=== PATIENT | female | born 1965 | race Caucasian/White ===

== ENCOUNTER 2018-07-01 11:06 | Outpatient (CLI) | payer BC, SELFPAY ==
[2018-07-01 11:32] LABS: HGB 12.2 g/dL (12.0-15.5); Mean Corpuscular Hemoglobin 28.3 pg (27.0-33.0); Mean Corpuscular Volume 85.8 fL (80-95); Mean Platelet Volume 9.5 fL (8.0-11.0); Platelet Count 199 x1000/uL (130-400); RBC 4.31 m/cumm (4.00-5.20); RBC Distribution Width 13.4 % (11.7-14.6); White Blood Cell Count 6.29 k/cumm (4.4-10.8)
[2018-07-01 11:44] LABS: ALT 41 U/L (12-78); AST 24 U/L (15-37); Albumin 3.4 g/dL (3.4-5.0); Alkaline Phosphatase 98 U/L (46-116); Anion Gap 9.8 mmol/L (3-11); BUN 12 mg/dL (7-18); Bilirubin, Total 0.4 mg/dL (0.2-1.0); CO2 27.2 mmol/L (21.0-32.0); CREATININE 0.86 mg/dL (0.55-1.02); Calcium 8.8 mg/dL (8.5-10.1); Chloride 105 mmol/L (98-107); Glucose 127 mg/dL (70-100); Potassium 3.8 mmol/L (3.5-5.1); Sodium 142 mmol/L (136-145); Total Protein 7.2 g/dL (6.4-8.2)
[2018-07-01 12:58] LABS: Iron 42 ug/dL (50-175); Total Iron Binding Capacity 353 ug/dL (250-450); Transferrin Sat 12 % (15-50)
[2018-07-03 07:51] LABS: Vitamin D 25 Total 37.8 ng/ml (30-100)
== END 2018-07-01 11:26 ==
PROVIDERS: PCP Family Medicine; Visit Provider Family Medicine
DX: D50.9 Iron deficiency anemia, unspecified (principal); E55.9 Vitamin D deficiency, unspecified; R53.83 Other fatigue
CPT/HCPCS: 36415; 80053; 82306; 85027; 83540; 83550

== ENCOUNTER 2019-03-26 10:21 | Outpatient (CLI) | payer BC, SELFPAY ==
--- NOTE | 2019-03-26 09:45 | DI.RAD_ITS ---
EXAM: XR ANKLE LT COMPLETE INDICATION: pain internal malleolar area - swelling/no trauma, M25.572. COMPARISON: No exams were available for comparison TECHNIQUE: 2D digital imaging was performed. FINDINGS: There is some soft tissue swelling of the medial malleolus. No bony or joint abnormality is identifie d.
== END 2019-03-26 10:41 ==
PROVIDERS: PCP Family Medicine; Visit Provider Family Medicine
DX: M25.572 Pain in left ankle and joints of left foot (principal); M79.89 Other specified soft tissue disorders
CPT/HCPCS: 73610

== ENCOUNTER 2019-07-04 11:11 | Outpatient (REF) | payer BC, SELFPAY ==
--- NOTE | 2019-07-04 09:30 | PAPFT_PTH ---
PATIENT: Demi Randle LOC: [facility] U#:[id number] AGE/SX: 54/F ROOM: RE07/04/[address]: Subha Gifford MD : 1965 BED: DIS: 07/04/2019 SPEC #: [id number] RECD: 07/04/19 12:48 STATUS: CAROLE ZAVALA #: [id number] KRISHNA: 07/04/19 09:[address]: Subha Gifford DEPT: [facility] Cytology RECD BY: Bre Capps Tissues: 1 - CX/ENDOCX FOR PAP SMEARS Procedures: PAP THIN PREP/UVM Screening HPV DNA PROBE Comments: [id number]
== END 2019-07-04 11:31 ==
LOC: LBN 11:11
PROVIDERS: PCP Family Medicine; Visit Provider Family Medicine
DX: Z12.4 Encounter for screening for malignant neoplasm of cervix (principal)
CPT/HCPCS: 88142; 87624

== ENCOUNTER 2019-07-14 09:37 | Outpatient (CLI) | payer BC, SELFPAY ==
[2019-07-14 11:15] LABS: HCT 39.8 % (36.0-46.0); Mean Corp. HGB Concentration 32.7 g/dL (32.0-36.0); Mean Corpuscular Volume 82.6 fL (80-95); Mean Platelet Volume 9.8 fL (8.0-11.0); Platelet Count 215 x1000/uL (130-400); RBC 4.82 m/cumm (4.00-5.20); White Blood Cell Count 6.24 k/cumm (4.4-10.8)
[2019-07-14 11:37] LABS: Iron 60 ug/dL (50-170); Total Iron Binding Capacity 339 ug/dL (250-450); Transferrin Sat 18 % (15-50)
[2019-07-14 11:51] LABS: ALT 43 U/L (14-59); AST 20 U/L (15-37); Albumin 3.7 g/dL (3.4-5.0); Alkaline Phosphatase 117 U/L (46-116); BUN 11 mg/dL (7-18); Bilirubin, Total 0.6 mg/dL (0.2-1.0); CREATININE 0.66 mg/dL (0.55-1.02); Calcium 8.9 mg/dL (8.5-10.1); Calculated LDL 160 mg/dL; Chloride 105 mmol/L (98-107); Cholesterol 230 mg/dL (<200); Ferritin 92 ng/mL (8-252); Glucose 95 mg/dL (74-106); HDL Cholesterol 39 mg/dL (40-60); Potassium 4.1 mmol/L (3.5-5.1); Sodium 143 mmol/L (136-145); Total Protein 6.9 g/dL (6.4-8.2); Triglyceride 158 mg/dL (<150)
[2019-07-16 14:10] LABS: Vitamin D 25 Total 33.7 ng/ml (30-100)
== END 2019-07-14 09:57 ==
PROVIDERS: PCP Family Medicine; Visit Provider Family Medicine
DX: D50.9 Iron deficiency anemia, unspecified (principal); E55.9 Vitamin D deficiency, unspecified; R53.83 Other fatigue; Z13.220 Encounter for screening for lipoid disorders
CPT/HCPCS: 36415; 80053; 80061; 82306; 85027; 82728; 83540; 83550

== ENCOUNTER 2019-08-01 01:16 | Outpatient (CLI) | payer BC, SELFPAY ==
--- NOTE | 2019-08-01 07:27 | DI.MAMMO_ITS ---
EXAM: MAMMO SCREENING CLINICAL HISTORY: screening,Z12.39 TECHNIQUE: Mammograms were interpreted according to the usual protocol including computer analysis w [employer] CAD system, tomosynthesis and C-view imaging. COMPARISON: 2009 to 2017 FINDINGS: The breasts are composed of heterogeneously dense fibroglandular densities, Breast Density category C . No suspicious masses or suspicious microcalcifications are seen. No skin thickening or abnormal axillary lymph nodes are seen. There has been no significant change from prior exams. IMPRESSION: BIRADS Category 1, negative mammogram. Yearly screening mammography is recommended. BREAST DENSITY: The mammogram demonstrates the patient's breast tissue is dense. Dense breast tissue is very common and is not abnormal but dense breast tissue can make it harder to find cancer on a ma mmogram. Also, dense breast tissue may increase breast cancer risk. This information about the result of the mammogram report was provided to the patient to raise their awareness. Use this report when y ou speak with the patient about their risks for breast cancer, which includes their family history. A t that time, you may recommend additional screening tests (Ultrasound or MRI) as they might be useful based on their risk. A negative radiographic report should not delay biopsy if a dominant or clinically suspicious mass is present. Up to ten percent of cancers are not identified on mammography. A negative report may reinforce clinical impression. Adenosis and dense breasts may obscure an underlying neoplasm. False positive reports average 6 to 10%.
== END 2019-08-01 01:36 ==
PROVIDERS: PCP Family Medicine; Visit Provider Family Medicine
DX: Z12.31 Encounter for screening mammogram for malignant neoplasm of breast (principal)
CPT/HCPCS: 77063; 77067

== ENCOUNTER 2020-04-11 07:27 | Outpatient (CLI) | payer BC, SELFPAY ==
[2020-04-13 23:23] LABS: Patient Race White; SARS-CoV-2 Specimen Source Nasal
[2020-04-14 08:53] LABS: SARS-CoV-2 RNA Detected (Undetected)
== END 2020-04-11 07:47 ==
PROVIDERS: PCP Family Medicine; Visit Provider Emergency Medicine
DX: R50.9 Fever, unspecified (principal)
CPT/HCPCS: U0003

== ENCOUNTER 2020-07-14 09:27 | Outpatient (CLI) | payer BC, SELFPAY ==
[2020-07-14 13:24] LABS: ALT 34 U/L (14-59); AST 18 U/L (15-37); Albumin 3.8 g/dL (3.4-5.0); Alkaline Phosphatase 89 U/L (46-116); Anion Gap 4.8 mmol/L (3-11); BUN 16 mg/dL (7-18); Bilirubin, Total 0.6 mg/dL (0.2-1.0); CO2 30.2 mmol/L (21.0-32.0); CREATININE 0.71 mg/dL (0.55-1.02); Calcium 8.9 mg/dL (8.5-10.1); Calculated LDL 143 mg/dL (<100); Chloride 106 mmol/L (98-107); Cholesterol 214 mg/dL (<200); Ferritin 70 ng/mL (8-252); Glucose 103 mg/dL (74-106); HDL Cholesterol 44 mg/dL (40-60); Magnesium 1.9 mg/dL (1.8-2.4); Potassium 3.9 mmol/L (3.5-5.1); Sodium 141 mmol/L (136-145); Total Protein 6.8 g/dL (6.4-8.2); Triglyceride 137 mg/dL (<150)
[2020-07-14 13:30] LABS: Vitamin D 25 Total 30.6 ng/ml (30-100)
== END 2020-07-14 09:47 ==
PROVIDERS: PCP Family Medicine; Visit Provider Family Medicine
DX: D50.9 Iron deficiency anemia, unspecified (principal); I10 Essential (primary) hypertension; E78.00 Pure hypercholesterolemia, unspecified; E83.2 Disorders of zinc metabolism; E55.9 Vitamin D deficiency, unspecified
CPT/HCPCS: 36415; 80053; 80061; 82306; 82728; 83735

== ENCOUNTER 2021-08-11 03:48 | Outpatient (CLI) | payer BC, SELFPAY ==
[2021-08-11 08:27] LABS: HCT 39.5 % (36.0-46.0); HGB 12.5 g/dL (11.2-15.7); MCH 27.4 pg (27.0-33.0); MCHC 31.6 % (32.0-36.0); MCV 86.6 fL (80-95); MPV 9.5 fL (8.0-11.0); Platelet Count 196 10^3/uL (130-400); RBC 4.56 10^6/uL (3.93-5.22); RDW 13.3 % (11.7-14.6); RDW-SD 41.7 fL; WBC 6.21 10^3/uL (4.4-10.8)
[2021-08-11 09:08] LABS: ALT 52 U/L (14-59); AST 21 U/L (15-37); Albumin 3.6 g/dL (3.4-5.0); Alkaline Phosphatase 102 U/L (46-116); Anion Gap 11.2 mmol/L (3-11); BUN 17 mg/dL (7-18); Bilirubin, Total 0.5 mg/dL (0.2-1.0); CO2 26.8 mmol/L (21.0-32.0); CREATININE 0.7 mg/dL (0.55-1.02); Calcium 8.6 mg/dL (8.5-10.1); Calculated LDL 153 mg/dL (<100); Chloride 105 mmol/L (98-107); Cholesterol 238 mg/dL (<200); Glucose 108 mg/dL (74-106); HDL Cholesterol 44 mg/dL (40-60); Sodium 143 mmol/L (136-145); Total Protein 6.9 g/dL (6.4-8.2); Triglyceride 205 mg/dL (<150)
[2021-08-11 09:16] LABS: Iron 71 ug/dL (50-170); Total Iron Binding Capacity 317 ug/dL (250-450); Transferrin Sat 22 % (15-50)
[2021-08-11 09:21] LABS: Hemoglobin A1C 5.8 % (<5.7)
[2021-08-11 12:24] LABS: Bilirubin Negative (Negative); Blood Negative (Negative); Clarity Clear (Clear); Glucose Negative (Negative); Ketones Negative (Negative); Leukocyte Esterase Negative (Negative); Nitrite Negative (Negative); Urobilinogen 0.2 EU/dL (Up TO 0.2)
[2021-08-11 17:24] LABS: Ferritin 101 ng/mL (10-291)
[2021-08-12 10:02] LABS: Hepatitis C Ab w Rflx HCV PCR Negative (Negative)
[2021-08-12 10:18] LABS: HIV-1/2 Ag & Ab Screen Negative (Negative)
[2021-08-13 01:09] LABS: Vitamin D 25 Total 33.3 ng/mL (30-100)
== END 2021-08-11 03:49 | disposition home or self-care (01) ==
LOC: LBO 03:48
PROVIDERS: Family Medicine; PCP Family Medicine; Visit Provider Family Medicine
DX: I10 Essential (primary) hypertension (principal); D50.9 Iron deficiency anemia, unspecified; E55.9 Vitamin D deficiency, unspecified; E78.5 Hyperlipidemia, unspecified; Z11.59 Encounter for screening for other viral diseases; Z11.4 Encounter for screening for human immunodeficiency virus [HIV]
CPT/HCPCS: 36415; 80053; 80061; 82306; 85027; 86803; 87389; 81003; 82728; 83036; 83540; 83550

== ENCOUNTER 2021-08-31 00:36 | Outpatient (CLI) | payer BC, SELFPAY ==
--- NOTE | 2021-08-31 08:15 | DI.MAMMO_ITS ---
Exam(s) MAMMO SCREENING EXAM: MAMMO SCREENING CLINICAL HISTORY: screening,Z12.39 TECHNIQUE: Mammograms were interpreted according to the usual protocol including computer analysis w [employer] CAD system, tomosynthesis and C-view imaging. COMPARISON: 2013 through 2019 FINDINGS: The breasts are composed of scattered fibroglandular densities, Breast Density category B. No suspicious masses or suspicious microcalcifications are seen. No skin thickening or abnormal axillary lymph nodes are seen. There has been no significant change from prior exams. IMPRESSION: BI-RADS Category 1, Negative mammogram Yearly screening mammography is recommended. Breast Density - Category B, scattered fibroglandular densities. A negative radiographic report should not delay biopsy if a dominant or clinically suspicious mass is present. Up to ten percent of cancers are not identified on mammography. A negative report may reinforce clinical impression. Adenosis and dense breasts may obscure an underlying neoplasm. False positive reports average 6 to 10%. Patient will receive a letter notifying them of these results.
== END 2021-08-31 00:56 ==
PROVIDERS: PCP Family Medicine; Visit Provider Family Medicine
DX: Z12.31 Encounter for screening mammogram for malignant neoplasm of breast (principal)
CPT/HCPCS: 77063; 77067

== ENCOUNTER 2022-08-27 17:49 | Outpatient (CLI) | payer BC, SELFPAY ==
[2022-08-27 14:30] LABS: MCH 28.4 pg (27.0-33.0); MCHC 34.2 % (32.0-36.0); MCV 83 fL (80-95); MPV 9.4 fL (8.0-11.0); Platelet Count 189 10^3/uL (130-400); RBC 4.57 10^6/uL (3.93-5.22); RDW 12.6 % (11.7-14.6); RDW-SD 38.2 fL; WBC 6.29 10^3/uL (4.4-10.8)
[2022-08-27 14:42] LABS: ESR 17 mm/hr (0-30)
[2022-08-27 14:45] LABS: Hemoglobin A1C 5.7 % (<5.7)
[2022-08-27 15:43] LABS: ALT 40 U/L (14-59); AST 22 U/L (15-37); Albumin 3.8 g/dL (3.4-5.0); Alkaline Phosphatase 101 U/L (46-116); Anion Gap 8.2 mmol/L (3-11); BUN 11 mg/dL (7-18); Bilirubin, Total 0.6 mg/dL (0.2-1.0); CO2 27.8 mmol/L (21.0-32.0); CREATININE 0.6 mg/dL (0.55-1.02); Calculated LDL 171 mg/dL (<100); Chloride 105 mmol/L (98-107); Cholesterol 252 mg/dL (<200); Estimated GFR 105.28 (mL/min/1.73m2); Glucose 89 mg/dL (74-106); HDL Cholesterol 49 mg/dL (40-60); Potassium 3.5 mmol/L (3.5-5.1); Sodium 141 mmol/L (136-145); Total Protein 7.1 g/dL (6.4-8.2); Triglyceride 164 mg/dL (<150); Vitamin B12 413 pg/mL (193-986)
[2022-08-27 16:07] LABS: C-Reactive Protein 0.96 mg/dL (0.0-0.3)
[2022-08-27 16:15] LABS: Vitamin D 25 Total 31.3 ng/mL (30-100)
[2022-08-27 16:45] LABS: Iron 67 ug/dL (50-170)
[2022-08-30 13:33] LABS: ANA Interpretation Negative (Negative)
== END 2022-08-27 17:50 | disposition home or self-care (01) ==
LOC: LBO 17:49
PROVIDERS: PCP Nurse Practitioner Family; Visit Provider Nurse Practitioner Family
DX: E55.9 Vitamin D deficiency, unspecified (principal); R21 Rash and other nonspecific skin eruption; E78.5 Hyperlipidemia, unspecified; D50.9 Iron deficiency anemia, unspecified; R73.9 Hyperglycemia, unspecified
CPT/HCPCS: 36415; 80053; 80061; 82306; 85027; 85652; 82607; 83036; 83540; 86038; 86140

== ENCOUNTER 2022-09-07 01:29 | Outpatient (CLI) | payer BC, SELFPAY ==
--- NOTE | 2022-09-07 06:30 | DI.MAMMO_ITS ---
Exam(s) MAMMO SCREENING EXAM: MAMMO SCREENING CLINICAL HISTORY: screening,z12.39 TECHNIQUE: Bilateral full field digital CC and MLO mammographic images were obtained with 3D tomosyn thesis and utilizing computer aided detection (CAD). COMPARISON: Available for comparison. FINDINGS: Masses/Architectural Distortion: None seen. Microcalcifications: No suspicious pleomorphic-type are seen. Skin Thickening/Nipple Retraction: None. IMPRESSION: 1. No significant interval change with no specific features of malignancy noted. 2. Unless there is more urgent need, screening mammography is recommended, as per [employer] guidelines. BI-RADS Category 1 - Negative Breast Density - Category B - Scattered areas of fibroglandular density Breast density category C or D implies that the patient has dense breast tissue. Dense breast tissue is very common and is not abnormal but dense breast tissue can make it harder to find cancer on a ma mmogram. Also, dense breast tissue may increase their breast cancer risk. This information about the result of the mammogram report was provided to the patient to raise their awareness. Use this report when you speak with the patient about their risks for breast cancer, which includes their family hist ory. At that time, you may recommend for more screening tests (Ultrasound or MRI) as they might be us eful based on their risk. A negative radiographic report should not delay biopsy if a dominant or clinically suspicious mass is present. Up to ten percent of cancers are not identified on mammography. A negative report may reinforce clinical impression. Adenosis and dense breasts may obscure an underlying neoplasm. False positive reports average 6 to 10%. Patient will receive a letter notifying them of these results.
== END 2022-09-07 01:49 ==
LOC: DI 01:29
PROVIDERS: PCP Nurse Practitioner Family; Visit Provider Nurse Practitioner Family
DX: Z12.31 Encounter for screening mammogram for malignant neoplasm of breast (principal)
CPT/HCPCS: 77063; 77067

== ENCOUNTER 2022-12-31 12:39 | Outpatient (CLI) | payer OTHER, BC, SELFPAY ==
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
== END 2022-12-31 12:59 ==
PROVIDERS: PCP Nurse Practitioner Family; Visit Provider Physician Assistant
DX: M54.9 Dorsalgia, unspecified (principal); M51.36 Other intervertebral disc degeneration, lumbar region
CPT/HCPCS: 72050; 72072

== ENCOUNTER 2023-04-06 12:59 | Outpatient (REF) | payer BC, SELFPAY ==
[2023-04-06 13:50] LABS: Anion Gap 11.1 mmol/L (3-11); BUN 14 mg/dL (7-18); CO2 25.9 mmol/L (21.0-32.0); CREATININE 0.7 mg/dL (0.55-1.02); Calcium 9.4 mg/dL (8.5-10.1); Chloride 104 mmol/L (98-107); Estimated GFR 100.81 (mL/min/1.73m2); Glucose 111 mg/dL (74-106); Potassium 3.5 mmol/L (3.5-5.1); Sodium 141 mmol/L (136-145)
== END 2023-04-06 13:00 | disposition home or self-care (01) ==
LOC: LBN 12:59
PROVIDERS: PCP Nurse Practitioner Family; Visit Provider Nurse Practitioner Family
DX: I10 Essential (primary) hypertension (principal)
CPT/HCPCS: 80048

== ENCOUNTER 2023-08-05 10:15 | Outpatient (CLI) | payer BC, SELFPAY ==
[2023-08-05 12:50] LABS: HCT 41.6 % (36.0-46.0); HGB 13.6 g/dL (11.2-15.7); MCH 27.9 pg (27.0-33.0); MCHC 32.7 % (32.0-36.0); MCV 85 fL (80-95); MPV 9.9 fL (8.0-11.0); Platelet Count 226 10^3/uL (130-400); RBC 4.88 10^6/uL (3.93-5.22); RDW 12.8 % (11.7-14.6); RDW-SD 39.4 fL; WBC 7.15 10^3/uL (4.4-10.8)
[2023-08-05 13:07] LABS: ALT 34 U/L (14-59); AST 19 U/L (15-37); Albumin 3.8 g/dL (3.4-5.0); Alkaline Phosphatase 106 U/L (46-116); Anion Gap 10.1 mmol/L (3-11); BUN 10 mg/dL (7-18); Bilirubin, Total 0.8 mg/dL (0.2-1.0); CO2 28.9 mmol/L (21.0-32.0); CREATININE 0.8 mg/dL (0.55-1.02); Calcium 9.3 mg/dL (8.5-10.1); Chloride 103 mmol/L (98-107); Estimated GFR 85.89 (mL/min/1.73m2); Glucose 99 mg/dL (74-106); Potassium 3.9 mmol/L (3.5-5.1); Sodium 142 mmol/L (136-145); TSH (W/Ref FT4) 0.53 uIU/mL (0.36-3.74); Total Protein 7.1 g/dL (6.4-8.2)
[2023-08-05 14:58] LABS: Hemoglobin A1C 5.6 % (<5.7)
[2023-08-05 15:59] LABS: Iron 72 ug/dL (50-170)
[2023-08-05 16:17] LABS: Vitamin D 25 Total 39.4 ng/mL (30-100)
[2023-08-05 16:22] LABS: Calculated LDL 177 mg/dL (<100); Cholesterol 262 mg/dL (<200); HDL Cholesterol 55 mg/dL (40-60); Triglyceride 150 mg/dL (<150); Vitamin B12 404 pg/mL (193-986)
== END 2023-08-05 10:16 | disposition home or self-care (01) ==
LOC: LOS 10:15
PROVIDERS: PCP Nurse Practitioner Family; Referring Provider Nurse Practitioner Family; Visit Provider Nurse Practitioner Family
DX: D50.9 Iron deficiency anemia, unspecified (principal); E55.9 Vitamin D deficiency, unspecified; R73.9 Hyperglycemia, unspecified; E78.5 Hyperlipidemia, unspecified
CPT/HCPCS: 36415; 80053; 80061; 82306; 85027; 82607; 83036; 83540; 84443

== ENCOUNTER 2024-04-04 18:04 | Outpatient (REF) | payer BC, SELFPAY ==
--- OUTSIDE RECORDS SUMMARY | 2024-04-04 18:06 | XMS_ITS | Encounter Summary ---
Author Organization [facility] [place] [address] Care Team Providers Care Filer And Sander Name Role Phone Subha Gifford MD Primary Care Provider [phone] Encounter Details Date Type Department Care Team (Late st Contact Info) Description 07/12/2014 Ancillary Procedure Radiology Library at [facility] [place] [place] [address] Subha Gifford MD [address] [place] [address] [address] [place], [place] [id number] Social History Tobacco Use Types Packs/Day Years Used Date Smoking Tobacco: Never Sex and Gender Information Value Date Recorded Sex Assigned at Not on file Gender Identity Not on file Sexual Orientation Not on file documented as of this encounter Plan of Treatment Not on file documented as of this encounter Procedures Procedure Name Priority Date/Time Associated Diagnosis Comments FILM LIBRARY STORAGE ONLY MAMMO Routine 07/12/2014 12:00 AM EST documented in this encounter Results * Film Library- Storage Only Mammo (07/12/2014 12:00 AM EST) Narrative RAD - 09/15/2018 3:24 PM EDT This exam is auto-finalizing. It's purpose is for storage only. Subha Gifford MD IMG FILM LIBRARY OR DERABLES [place], [place] documented in this encounter Visit Diagnoses Not on filedocumented in this encounter Care Teams Filer And Sander Relationship Specialty Start Date End Date Subha Gifford MD [address] [place] [address] PCP - General 03/27/14 documented as of this encounter
--- OUTSIDE RECORDS SUMMARY | 2024-04-04 18:06 | XMS_ITS | Referral Summary ---
Author Organization [facility] Address [address] [place] [address] Care Team Providers Care Machine Mover Name Role Phone Tiesha Hargrove MD Primary Care Provider [phone] Social History Tobacco Use Types Packs/Day Years Used Date Smoking Tobacco: Never Assessed Sex and Gender Information Value Date Recorded Sex Assigned at Not on file Gender Identity Not on file Sexual Orientation Not on file Plan of Treatment Not on file Procedures Procedure Name Priority Date/Time Associated Diagnosis Comments HEPATITIS C AB W REFLEX TO HCV RNA BY PCR Routine 08/11/2021 8:11 EST from Last 3 Months or Most Recently Relevant to Health Maintenance Results * HEPATITIS C AB W REFLEX TO HCV RNA BY PCR (08/11/2021 8:11 EST) Hep C Antibody Negative Negative 08/12/2021 9:[address] [facility] Blood VENOUS BLOOD / Unknown 08/11/2021 8:11 EST 08/11/2021 15:54 EST Provider Outr Resulting Lab CHEMISTRY & BLOOD GAS ORDERABLES [facility] [address] [place] [address] from Last 3 Months or Most Recently Relevant to Health Maintenance Care Teams Machine Mover Relationship Specialty Start Date End Date Tiesha Hargrove MD [address] [place] [address] PCP - General 04/27/15
--- OUTSIDE RECORDS SUMMARY | 2024-04-04 18:06 | XMS_ITS | Encounter Summary ---
Author Organization [facility] [place] [address] Care Team Providers Care Ic Designer Standard Cells Name Role Phone Subha Gifford MD Primary Care Provider [phone] Encounter Details Date Type Department Care Team (Late st Contact Info) Description 04/26/2017 12:05 AM EST Ancillary Procedure Radiology Library at [facility] [place] [address] Subha Gifford MD [address] [place] [address] [address] [place], [place] [id number] Social History Tobacco Use Types Packs/Day Years [...] Comments FILM LIBRARY STORAGE ONLY MAMMO Routine 04/26/2017 12:05 AM EST documented in this encounter Results * Film Library- Storage Only Mammo (04/26/2017 12:05 AM EST) Narrative LEVI - 09/15/2018 3:20 PM EDT This exam is auto-finalizing. It's purpose is for storage only. Subha Gifford MD IMG FILM LIBRARY OR DERABLES [place], [place] documented in this encounter Visit Diagnoses Not on filedocumented in this encounter Care Teams Ic Designer Standard Cells Relationship Specialty Start Date End Date Subha Gifford MD [address] [place] [address] PCP - General 03/27/14 documented as of this encounter
--- OUTSIDE RECORDS SUMMARY | 2024-04-04 18:06 | XMS_ITS | Encounter Summary ---
Author Organization [facility] [place] [address] Care Team Providers Care Digital Research Analyst Name Role Phone Tiesha Hargrove MD Primary Care Provider [phone] Encounter Details Date Type Department Care Team (Late st Contact Info) Description 01/08/2014 Ancillary Procedure Radiology Library at [facility] [address] [place] [address] Subha Gifford MD [address] [place] [address] [address] [facility] [address] [place], [place] [id number] Social History Tobacco Use Types Packs/Day Years [...] Comments FILM LIBRARY STORAGE ONLY MAMMO Routine 01/08/2014 12:00 AM EDT documented in this encounter Results * Film Library- Storage Only Mammo (01/08/2014 12:00 AM EDT) Narrative RAD - 09/15/2018 3:25 PM EDT This exam is auto-finalizing. It's purpose is for storage only. Subha Gifford MD IMG FILM LIBRARY OR DERABLES [place], [place] documented in this encounter Visit Diagnoses Not on filedocumented in this encounter Care Teams Digital Research Analyst Relationship Specialty Start Date End Date Tiesha Hargrove MD [address] [place] [address] PCP - General 05/12/10 03/26/14 documented as of this encounter
--- OUTSIDE RECORDS SUMMARY | 2024-04-04 18:06 | XMS_ITS | Encounter Summary ---
Author Organization [facility] [place] [address] Care Team Providers Care Floor Trader Name Role Phone Tiesha Hargrove MD Primary Care Provider [phone] Encounter Details Date Type Department Care Team (Late st Contact Info) Description 12/26/2013 Ancillary Procedure Radiology Library at [facility] [address] [place] [address] Subha Gifford MD [address] [place] [address] [address] [facility] [place], [place] [id number] Social History Tobacco Use Types Packs/Day Years [...] Comments FILM LIBRARY STORAGE ONLY MAMMO Routine 12/26/2013 12:00 AM EDT documented in this encounter Results * Film Library- Storage Only Mammo (12/26/2013 12:00 AM EDT) Narrative RAD - 09/15/2018 3:26 PM EDT This exam is auto-finalizing. It's purpose is for storage only. Subha Gifford MD IMG FILM LIBRARY OR DERABLES [place], [place] documented in this encounter Visit Diagnoses Not on filedocumented in this encounter Care Teams Floor Trader Relationship Specialty Start Date End Date Tiesha Hargrove MD [address] [place] [address] PCP - General 05/12/10 03/26/14 documented as of this encounter
--- OUTSIDE RECORDS SUMMARY | 2024-04-04 18:06 | XMS_ITS | Encounter Summary ---
Author Organization [facility] Address [facility] [place] [address] Care Team Providers Care Manager Site Name Role Phone Subha Gifford MD Primary Care Provider [phone] Reason for Visit * Reason Comments Skin Lesion Encounter Details Date Type Department Care Team (Late st Contact Info) Description 03/27/2014 3:00 PM EDT Office Visit Dermatology at [facility] [address] [place] [address] Netta Worthy MD [facility] [address]AH[address] [place] [address] Neoplasm of unspecified nature of bone, soft tissue, and skin (Primary Dx); Nevus Discharge Disposition: Home Social History Tobacco Use Types Packs/Day Years Used Date Smoking Tobacco: Never Sex and Gender Information Value Date Recorded Sex Assigned at Not on file Gender Identity Not on file Sexual Orientation Not on file documented as of this encounter Progress Notes * Adalid Teran MD - 03/28/2014 1:15 PM EDT I directly supervised Dr. Netta Worthy during this office visit. Dr. Worthy presented the history and physical exam to me. I then saw and examined this patient with Dr. Worthy. We reviewed the history and pertinent details and I confirmed the physical findings. I agree with the details of the historyand physical exam as documented in Dr. Worthy's note. ADALID TERAN MD Staff Physician * Netta Worthy MD - 03/27/2014 3:05 PM EDT Images from the original note were not included. DERMATOLOGY - NEW PATIENT NOTE Date of service: 03/27/2014 Chilo Daniels : 1965 Dermatology Resident Note: Netta Worthy MD, PGY2 Chief Complaint Patient presents with ??? Skin Lesion HPI: Ms. Chilo Daniels is a 49 y.o. female. This is a new patient to me, seen in consultation at the request of Tiesha Hargrove for growths on the patient's face. Patient states that she has had the lesion by her right mormon since she was a teenager with no history of bleeding, itching, pain, or growth. The lesion on her left nasolabial fold has been there since she had her son 16 years ago and thatone has gotten larger, but is otherwise asymptomatic. The newest lesions are under her left nostril. The one that is redder has been there for two years. It got bloody at one point, then increased insize. It was brighter before but now is fading, and it is no longer increasing in size. The other one under the left nostril has been there for five years. Ms. Daniels states that she has tried squeezing them before and discharge has come out. She has also tried treating them with hydrocortisone cream to try shrinking them but that did not prove to be effective. These lesions are asymptomatic but cosmetically bothersome. She would like to know the cause and how to prevent these lesions. Past Skin History: - Teenage acne - Had eczema on her chin during - Wears sunscreen with an SPF of 30-50 only when being exposed to the sun for long periods of time Problem List: Migraines Past Surgical History: None Medications: No current outpatient prescriptions on file. Allergies Allergen Reactions ??? Sulfacetamide Sodium CIS - Localized Reaction ??? Erythromycin Base CIS - Unknown Family History: No family h/o melanoma or non-melanoma skin cancer. 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 Currently has a headache. Skin: As per HPI; no other skin concerns. Examination: Constitutional: Patient was alert, well-appearing and in no noticeable distress. Skin: A focused skin exam was performed. This includes the patient's face. Specific skin findings: A. Left upper cutaneous lip at junction of left nasal vestibule: 2 x 2 mm rubbery, pink, pedunculated papule. Photos taken with patient's verbal consent: B. Left nasolabial fold, right mormon, left upper cutaneous lip at junction of left nasal vestibule(just inferior to A above): Flesh-colored, dome-shaped papules. The one on the right mormon and left nasolabial fold have hairs growing from them. Diagnosis/Assessment/Treatment Plan: A. Neurofibroma versus fibrous papule versus intradermal nevus versus skin tag - Procedure: - Topical lidocaine was applied. Skin biopsy using scissors. Site: Left upper cutaneous lip at junction of left nasal vestibule - Discussed procedure and expectations including risks and benefits. Verbal consent obtained. Sterile skin prep performed. Local anesthesia with 1% xylocaine, 1/100,000 epinephrine. The lesion was removed by scissors technique to the level of dermis and submitted to Pathology. Hemostasis obtained. There were no complications; the patient tolerated the procedure well. - Specimen to Pathology. - The wound was dressed. Post-procedure expectations (including discomfort management), wound care and activity restrictions were reviewed. Follow-up based on Pathology results. B. Intradermal Nevi - Patient reassured lesions are benign in nature. - Explained that removal of these lesions would leave a scar. Patient has decided not to proceed with removal. Follow-up: RTC if needed pending pathology, otherwise PRN. Instructed to call for questions or concerns. ITED LPN, am documenting this encounter acting as the scribe for and in the presence ofDr. Netta Worthy. I performed the above scribed service and agree with the accuracy of the documentation of this encounter. Netta Worthy MD, PGY2 Resident in Dermatology [facility] Patient seen and evaluated with staff automotive parts manager: Adalid Teran MD Section of Dermatology [facility] documented in this encounter Plan of Treatment Scheduled Orders Name Type Priority Associated Diagnoses Orde r Schedule Pathology Order Update Lab Routine Neoplasm of unspecified nature of bone, soft tissue, and skin Ordered: 03/27/2014 documented as of this encounter Procedures Procedure Name Priority Date/Time Associated Diagnosis Comments SPECIMEN TO PATHOLOGY (NON-OR) Routine 03/27/2014 4:04 PM EDT Neoplasm of unspecified nature of bone, soft tissue, and skin SURGICAL PATHOLOGY REPORT Routine 03/27/2014 4:04 PM EDT documented in this encounter Results * Surgical Pathology Report (03/27/2014 4:04 PM EDT) Final Diagnosis ? [facility] ? Provider: ?? NETTA WORTHY ?? Pt. Name: ?? CHILO DANIELS ? Acc #: ?[id number] ? Pt. ? Col Date: ?? 03/27/2014 ? /Sex: ?1965,(49 years),Female ? Rec Date: ?? 03/27/2014 ? LOC: ?[facility] ? SURGICAL PATHOLOGY ? ---Pathologic Diagnosis--- ? Skin, left upper cutaneous lip at junction with left nasal vestibule, snip ? biopsy: ?- ANGIOFIBROMA ? CR-0 ? 03/28/14 ? BJM ? 03/28/14 Verified by: ? Melissa IBANEZ, Noam Sanchez ? Dermatopathologi st, Bone & Soft Tissue ? Pathologist ? (Electronic Signature) ? The attending pathologist whose signature appears on this report has ? reviewed all diagnostic slides and has edited the gross and/or ? microscopic portion of the report in rendering the final pathologic ? diagnosis. ? ---Gross Description--- ? A - Labeled/Fixative : Patient demographics, formalin. ? Quantity/Size: Single, 0.2 x 0.2 x 0.2 cm. ? Tissue Description: Shave of parker rubbery skin. ? Sections/Process ing: Submitted intact. (T1) ??ksb ? ---Clinical Information--- ? Specimen Submitted: ? A - Skin, left upper cutaneous lip at junction with left nasal vestibule, ? snip (1) ? Clinical History: ? 2 mm x 2 mm rubbery pink pedunculated papule ? Clinical Diagnosis: ? Neurofibroma versus fibrous papule versus intradermal nevus versus skin tag 03/28/2014 12:27 PM EDT [facility] SPECIMEN FROM SKIN / Unknown 03/27/2014 4:04 PM EDT 03/27/2014 4:04 PM EDT Netta Worthy MD PATHOLOGY/CYTOLOGY O RDERABLES [facility] [place] [address] * Specimen to Pathology (NON-OR) (03/27/2014 4:04 PM EDT) AP Specimen 03/27/2014 4:04 PM EDT 03/27/2014 4:04 PM EDT Narrative [facility] - 03/27/2014 4:04 PM EDT Specimen requisition ordered. ??Separate Pathology report to follow Adalid Teran MD PATHOLOGY/CYTOLOGY O RDERABLES [facility] documented in this encounter Visit Diagnoses Diagnosis Neoplasm of unspecified nature of bone, soft tissue, and skin- Primary Nevus Benign neoplasm of skin, site unspecified documented in this encounter Care Teams Manager Site Relationship Specialty Start Date End Date Subha Gifford MD [address] [place] [address] [address] [facility] 1 [place] [address] PCP - General 03/27/14 documented as of this encounter
--- OUTSIDE RECORDS SUMMARY | 2024-04-04 18:06 | XMS_ITS | Encounter Summary ---
Author Organization [facility] [place] [address] Care Team Providers Care Career Resource Technician Name Role Phone Subha Gifford MD Primary Care Provider [phone] Encounter Details Date Type Department Care Team (Late st Contact Info) Description 02/10/2016 Ancillary Procedure Radiology Library at [facility] [place] [address] Subha Gifford MD [address] [place] [address] [address] [place], [place] [id number] Social History Tobacco Use Types Packs/Day Years [...] Comments FILM LIBRARY STORAGE ONLY MAMMO Routine 02/10/2016 12:00 AM EDT documented in this encounter Results * Film Library- Storage Only Mammo (02/10/2016 12:00 AM EDT) Narrative RAD - 09/15/2018 3:23 PM EDT This exam is auto-finalizing. It's purpose is for storage only. Suhba Gifford MD IMG FILM LIBRARY OR DERABLES [place], [place] documented in this encounter Visit Diagnoses Not on filedocumented in this encounter Care Teams Career Resource Technician Relationship Specialty Start Date End Date Subha Gifford MD [address] [facility] [facility] [address] [address] [place] [address] PCP - General 03/27/14 documented as of this encounter
--- OUTSIDE RECORDS SUMMARY | 2024-04-04 18:06 | XMS_ITS | Encounter Summary ---
Author Organization [facility] Address [address] [place] [address] Care Team Providers Care Contract Negotiator Name Role Phone Tiesha Hargrove MD Primary Care Provider [phone] Encounter Details Date Type Department Care Team (Late st Contact Info) Description 07/05/2019 Lab Requisition [facility] Pathology & Laboratory Medicine - [facility] [address] [place] [address] Subha Gifford MD [address] [place] [address] [address] [place] [address] Encounter for other general examination Social History Tobacco Use Types Packs/Day Years Used Date Smoking Tobacco: Never Assessed Sex and Gender Information Value Date Recorded Sex Assigned at Not on file Gender Identity Not on file Sexual Orientation Not on file documented as of this encounter Plan of Treatment Not on file documented as of this encounter Procedures Procedure Name Priority Date/Time Associated Diagnosis Comments PAP TEST Today 07/04/2019 9:30 EST Encounter for other general examination HPV DNA DETECTION WITH GENOTYPING, PCR Today 07/04/2019 9:30 EST Encounter for other general examination documented in this encounter Results * HUMAN PAPILLOMAVIRUS (HPV) DETECTION-HIGH RISK TYPES (07/04/2019 9:30 EST) HPV other High Risk types, PCR Negative Negative 07/12/2019 14:[address] [facility] Papanicolaou smear specimen (specimen) CERVIX UTERI STRUCTURE / Unknown 07/04/2019 9:30 EST 07/10/2019 12:21 EST Subha Gifford MD MICROBIOLOGY - GENE RAL ORDERABLES Performing Organization Address City/[facility]/ZIP Co de Phone Number [facility] [address] [place] [address] * PAP TEST (07/04/2019 9:30 EST) Specimens A. Cervix and/or Endocervix, , ThinPrep Imaging System with Manual Evaluation 07/12/2019 15:07 [facility] Specimen Adequacy Satisfactory for Evaluation - transformation zone component present 07/12/2019 15:07 [facility] General Categorization Negative for intraepithelial lesion or malignancy 07/12/2019 15:07 [facility] Attestation . 07/12/2019 15:07 [facility] at 1507 Clinical History NONE 07/12/19 20 15:07 [facility] HPV The result for the Human Papillomavirus (HPV) Detection-High Risk Types is Negative. No E6 or E7 mRNA is detected from HPV types 16,18,31,33,35,39 ,45,51,52,56,58,5 9,66, and 68 by computer numeric control setter mediated amplification.Eden ting was performed on specimen [id number] and was resulted on 07/12/2019 1756 EST by MARCO, LAB INSTRUMENT RESULTS IN 07/12/2019 15:07 [facility] Scanned Images 07/12/2019 15:07 [facility] Papanicolaou smear specimen (specimen) CERVIX UTERI STRUCTURE / Unknown 07/04/2019 9:30 EST 07/05/2019 9:49 EST Subha Gifford MD PATHOLOGY ORDERABLE S Performing Organization Address City/[facility]/ZIP Co de Phone Number [facility] [address] [place] [address] documented in this encounter Visit Diagnoses Diagnosis Encounter for other general examination documented in this encounter Care Teams Contract Negotiator Relationship Specialty Start Date End Date Tiesha Hargrove MD [address] [place] [address] PCP - General 04/27/15 documented as of this encounter
--- OUTSIDE RECORDS SUMMARY | 2024-04-04 18:06 | XMS_ITS | Encounter Summary ---
Author Organization [facility] Address [address] [place] [address] Care Team Providers Care Blood Bank Laboratory Technician Name Role Phone Tiesha Hargrove MD Primary Care Provider [phone] Encounter Details Date Type Department Care Team (Late st Contact Info) Description 08/11/2021 Lab Requisition [facility] Pathology & Laboratory Medicine - [address] [address] Outr Resulting Lab, Provider Social History Tobacco Use Types Packs/Day Years [...] RNA BY PCR Routine 08/11/2021 8:11 EST FERRITIN Routine 08/11/2021 8:11 EST documented in this encounter Results * HEPATITIS C AB W REFLEX TO HCV RNA BY PCR (08/11/2021 8:11 EST) Hep C Antibody Negative Negative 08/12/2021 9:57 EST [facility] Blood VENOUS BLOOD / Unknown 08/11/2021 8:11 EST 08/11/2021 15:54 EST Provider Outr Resulting Lab CHEMISTRY & BLOOD GAS ORDERABLES [facility] [address] [place] [address] * FERRITIN (08/11/2021 8:11 EST) Ferritin 101 10 - 291 ng/mL 08/11/2021 17:20 EST [facility] Blood VENOUS BLOOD / Unknown 08/11/2021 8:11 EST 08/11/2021 15:54 EST Provider Outr Resulting Lab CHEMISTRY & BLOOD GAS ORDERABLES Performing Organization Address City/State/[facility] Co de Phone Number [facility] [address] [place] [address] documented in this encounter Visit Diagnoses Not on filedocumented in this encounter Care Teams Blood Bank Laboratory Technician Relationship Specialty Start Date End Date Tiesha Hargrove MD [address] [place], [place] [id number] PCP - General 04/27/15 documented as of this encounter
--- OUTSIDE RECORDS SUMMARY | 2024-04-04 18:06 | XMS_ITS | Clinical Summary ---
[place] [address] Care Team Providers Care Rack Puller Name Role Phone Subha Gifford MD Primary Care Provider Allergies Active Allergy Reactions Criticality Noted Date Comments Erythromycin Base CIS - Unknown Sulfacetamide Sodium Medium CIS - Localized Reaction Medications No known medications Family History Medical History Relation Comments Breast Cancer Neg Hx Social History Tobacco Use Types Packs/Day Years Used Date Smoking Tobacco: Never Sex and Gender Information Value Date Recorded Sex Assigned at Not on file Gender Identity Not on file Sexual Orientation Not on file Plan of Treatment Health Maintenance Due Date Last Done Comments CT Colonography 1966 Colonoscopy 1966 Colorectal Cancer Screening 1966 FIT DNA 1966 FIT 1966 Sigmoidoscopy (10 year) with FIT yearly 1966 Sigmoidoscopy 1966 HIV screen 02/28/1984 Hepatitis C Screening 02/28/1984 Hepatitis B vaccine (0-59 yrs) (1) 1985 Tetanus/Diphtheria/Pertussis Vaccines (1 - Tdap) 02/27 HPV test 02/28/1996 PAP Smear 02/28/1996 Breast Cancer Share Decision Needed 2006 Zoster vaccine (1 of 2) 02/28/2016 Breast Cancer screening 10/02/2020 10/02/2018 Advance Directive 2021 Covid-19 Vaccine ( - season) 2024 Influenza (Flu) vaccine (1 o f 1 - Influenza standard series) 02/19/2024 Procedures Procedure Name Priority Date/Time Associated Diagnosis Comments MAMMO DIAGNOSTIC CAD AND TAJ BILATERAL Routine 10/02/2018 11:15 AM EDT Lump of breast, right from Last 3 Months or Most Recently Relevant to Health Maintenance Results * Mammo Diagnostic CAD and Taj Bilateral (10/02/2018 11:15 AM EDT) Anatomical Region Laterality Modality Breast Bilateral Mammography Narrative 10/02/2018 12:49 PM EDT EXAMINATION: US bilateral BREAST LIMITED BILATERAL, MAMMO DIAGNOSTIC CAD AND TAJ BILATERAL; diagnostic right mammogram; screening left mammogram. CLINICAL HISTORY: Patient detected palpable PEA SIZED NODULE RIGHT BREAST TECHNIQUE: CC, MLO, ML ??views were obtained of each breast, as well as right spot tangent, right spot MLO, left spot CC, medial and lateral rolled left CC views using standard 2-D mammography as well as 3-D tomosynthesis. Computer aided detection was used. A metallic marker was placed at the site of palpable concern in the lower inner right breast at 5:00, 7 cm from the nipple. I personally performed targeted right and left breast ultrasound examination following the technologist. FINDINGS: The breasts are heterogeneously dense, which may obscure small masses. Right: In the lower inner right breast at 5:00, 7 cm from the nipple, there is a small well-circumscribed superficial mass. Targeted ultrasound to the area of clinical concern at 5:00, 7 cm from the nipple demonstrates a 0.4 cm well-circumscribed hypoechoic, heterogeneous well-circumscribed oval mass within the skin with a possible tract to the skin surface; findings are consistent with a benign process such as a sebaceous cyst. The remainder the right breast is unremarkable. There are no suspicious microcalcifications, masses, or areas of distortion. The pattern is stable. Left: There are no suspicious mammographic calcifications, masses or areas of distortion. The pattern is stable. Additional mammographic imaging of the lateral left breast performed for a questionable asymmetric density, demonstrates effacement of the tissue in this region with no underlying abnormality. Given the heterogeneously dense tissue in the lateral left breast, targeted ultrasound was performed of the lateral central left breast from 3:00 to 4:00, which demonstrates normal echogenic fibroglandular tissue with no sonographic abnormality. CONCLUSION: Right: No mammographic or sonographic evidence of malignancy. The palpable area of concern in the lower inner right breast corresponds to a benign dermal/skin lesion. No further imaging follow-up required. Left: No mammographic or sonographic evidence of malignancy. RECOMMENDATION: Routine annual screening. Findings and recommendations discussed with patient who concurs. Right: BI-RADS Category 2: Benign Findings. Left: BI-RADS Category 1: Negative Thank you for letting us participate in the care of this patient. For questions regarding this report, please contact the number below. ? Bia Adjovu GRAIN INSPECTOR IMG MAMMO ORDERABLE S from Last 3 Months or Most Recently Relevant to Health Maintenance Care Teams Rack Puller Relationship Specialty Start Date End Date Subha Gifford MD [address] [place] [address] PCP - General 03/27/14
--- OUTSIDE RECORDS SUMMARY | 2024-04-04 18:06 | XMS_ITS | Encounter Summary ---
Author Organization [facility] [place] [address] Care Team Providers Care Cabin Agent Name Role Phone Subha Gifford MD Primary Care Provider [phone] Encounter Details Date Type Department Care Team (Late st Contact Info) Description 10/24/2017 Ancillary Procedure Radiology Library at [facility] [place] [address] Subha Gifford MD [address] [place] [address] [address] [place], [place] [id number] Social History Tobacco Use Types Packs/Day Years [...] Comments FILM LIBRARY STORAGE ONLY MAMMO Routine 10/24/2017 12:00 AM EDT documented in this encounter Results * Film Library- Storage Only Mammo (10/24/2017 12:00 AM EDT) Narrative RAD - 09/15/2018 3:17 PM EDT This exam is auto-finalizing. It's purpose is for storage only. Subha Gifford MD IMG FILM LIBRARY OR DERABLES [place], [place] documented in this encounter Visit Diagnoses Not on filedocumented in this encounter Care Teams Cabin Agent Relationship Specialty Start Date End Date Subha Gifford MD [address] [place] [address] PCP - General 03/27/14 documented as of this encounter
--- OUTSIDE RECORDS SUMMARY | 2024-04-04 18:06 | XMS_ITS | Encounter Summary ---
Author Organization [facility] [place] [address] Care Team Providers Care Supervisor Parking Lot Name Role Phone Subha Gifford MD Primary Care Provider [phone] Encounter Details Date Type Department Care Team (Late st Contact Info) Description 02/05/2015 Ancillary Procedure Radiology Library at [facility] [place] [address] Subha Gifford MD [address] [place] [address] [address] [place], [place] [id number] Social History Tobacco Use Types Packs/Day Years [...] Comments FILM LIBRARY STORAGE ONLY MAMMO Routine 02/05/2015 12:00 AM EDT documented in this encounter Results * Film Library- Storage Only Mammo (02/05/2015 12:00 AM EDT) Narrative RAD - 09/15/2018 3:23 PM EDT This exam is auto-finalizing. It's purpose is for storage only. Subha Gifford MD IMG FILM LIBRARY OR DERABLES [place], [place] documented in this encounter Visit Diagnoses Not on filedocumented in this encounter Care Teams Supervisor Parking Lot Relationship Specialty Start Date End Date Subha Gifford MD [address] [place] [address] PCP - General 03/27/14 documented as of this encounter
--- OUTSIDE RECORDS SUMMARY | 2024-04-04 18:06 | XMS_ITS | Clinical Summary ---
Author Organization [facility] Address [address] [place] [address] Care Team Providers Care Flame Cutter Name Role Phone Tiesha Hargrove MD Primary Care Provider [phone] Social History Tobacco Use Types Packs/Day Years Used Date Smoking Tobacco: Never Assessed Sex and Gender Information Value Date Recorded Sex Assigned at Not on file Gender Identity Not on file Sexual Orientation Not on file Plan of Treatment Health Maintenance Due Date Last Done Comments Hepatitis B Vaccine (1 of 3 - 19+ 3-dose series) 02/27 COVID-19 Vaccine ( season) 2023 Hepatitis C Screen Completed 08/11/2021 Procedures Procedure Name Priority Date/Time Associated Diagnosis Comments HEPATITIS C AB W REFLEX TO HCV RNA BY PCR Routine 08/11/2021 8:11 EST from Last 3 Months or Most Recently Relevant to Health Maintenance Results * HEPATITIS C AB W REFLEX TO HCV RNA BY PCR (08/11/2021 8:11 EST) Hep C Antibody Negative Negative 08/12/2021 9:57 EST [facility] Blood VENOUS BLOOD / Unknown 08/11/2021 8:11 EST 08/11/2021 15:54 EST Provider Outr Resulting Lab CHEMISTRY & BLOOD GAS ORDERABLES [facility] [address] [place] [address] from Last 3 Months or Most Recently Relevant to Health Maintenance Care Teams Flame Cutter Relationship Specialty Start Date End Date Tiesha Hargrove MD [address] [place] [address] [facility] - General 04/27/15
--- OUTSIDE RECORDS SUMMARY | 2024-04-04 18:06 | XMS_ITS | Encounter Summary ---
Author Organization [facility] Address [address] [place] [address] Care Team Providers Care Webbing Supervisor Name Role Phone Tiesha Hargrove MD Primary Care Provider [phone] Encounter Details Date Type Department Care Team (Late st Contact Info) Description 08/27/[address] [facility] Pathology & Laboratory Medicine - [address] [address] Outr Resulting Lab, Provider Social History Tobacco [...] Procedure Name Priority Date/Time Associated Diagnosis Comments ANTI NUCLEAR AB (ED), IFA Routine 08/27/2022 14:24 EST documented in this encounter Results * ANTI NUCLEAR AB (ED), IFA (08/27/2022 14:24 EST) ED Interpretation Negative Negative 2022 13:29 EDT [facility] Comment:No titer performed, ED Screen is negative. Blood VENOUS BLOOD / Unknown 08/27/2022 14:24 EST 08/27/2022 21:45 EST Narrative [facility] - 08/30/2022 13:29 EDT Results were obtained with the INOVA NOVA Lite HEp-2 ED Kit by indirect immunofluorescence. Provider Outr Resulting Lab IMMUNOLOGY A ND SEROLOGY ORDERABLES [facility] [address] [place] [address] documented in this encounter Visit Diagnoses Not on filedocumented in this encounter Care Teams Webbing Supervisor Relationship Specialty Start Date End Date Tiesha Hargrove MD [address] [place] [address] PCP - General 04/27/15 documented as of this encounter
--- OUTSIDE RECORDS SUMMARY | 2024-04-04 18:06 | XMS_ITS | Encounter Summary ---
Author Organization [facility] Address [facility] [place] [address] Care Team Providers Care Supervisor Cook Room Name Role Phone Subha Gifford MD Primary Care Provider [phone] Reason for Visit * Reason Onset Date Comments Results 03/29/2014 Encounter Details Date Type Department Care Team (Late st Contact Info) Description 03/29/[address] [facility] [address] [place] [address] Netta Worthy MD [facility] [facility] [address] [place] [address] Results Social History Tobacco Use Types Packs/Day Years Used Date Smoking Tobacco: Never Sex and Gender Information Value Date Recorded Sex Assigned at Not on file Gender Identity Not on file Sexual Orientation Not on file documented as of this encounter Miscellaneous Notes * Telephone Encounter - Netta Worthy MD - 04/08/2014 6:32 PM EDT I called Ms. Randle's home number and was referred to her parents' house to reach her (phone number [phone]). I confirmed her name, and she told me her correct date of . 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 I informed her that this is not a cancer, and that no further action is needed for this typ e of lesion. documented in this encounter Plan of Treatment Not on file documented as of this encounter Visit Diagnoses Not on filedocumented in this encounter Care Teams Supervisor Cook Room Relationship Specialty Start Date End Date Subha Gifford MD [address] [facility] [address] [place] [address] PCP - General 03/27/14 documented as of this encounter
--- OUTSIDE RECORDS SUMMARY | 2024-04-04 18:06 | XMS_ITS | Encounter Summary ---
Author Organization [facility] Address [address] [place] [address] Care Team Providers Care Correction Worker Name Role Phone Tiesha Hargrove MD Primary Care Provider [phone] Encounter Details Date Type Department Care Team (Late st Contact Info) Description 08/11/2021 Lab Requisition [facility] Pathology & Laboratory Medicine - [facility] [address] [place] [address] Outr Resulting Lab, Provider Social History Tobacco [...] Procedure Name Priority Date/Time Associated Diagnosis Comments HIV 1/2 ANTIGEN AND ANTIBODY, 4TH GENERATION Routine 08/11/2021 8:11 EST documented in this encounter Results * HIV 1/2 ANTIGEN AND ANTIBODY, 4TH GENERATION (08/11/2021 8:11 EST) HIV 1 and 2 Antibody/p24 Antigen, 4th Generation Negative Negative 08/12/2021 10:14 EST [facility] Comment:If acute HIV-1 infec tion is suspected in a high risk patient, submit plasma specimen for HIV-1 RNA quantitation test. Blood VENOUS BLOOD / Unknown 08/11/2021 8:11 EST 08/11/2021 15:54 EST Narrative [facility] - 08/12/2021 10:14 EST Fourth Generation assay performed on the Siemens Centaur XPT. Provider Outr Resulting Lab IMMUNOLOGY A ND SEROLOGY ORDERABLES [facility] [address] [place] [address] documented in this encounter Visit Diagnoses Not on filedocumented in this encounter Care Teams Correction Worker Relationship Specialty Start Date End Date Tiesha Hargrove MD [address] [place], [place] [address] PCP - General 04/27/15 documented as of this encounter
--- OUTSIDE RECORDS SUMMARY | 2024-04-04 18:06 | XMS_ITS | Encounter Summary ---
Author Organization [facility] [place] [address] Care Team Providers Care It Network Administrator Name Role Phone Subha Gifford MD Primary Care Provider [phone] Encounter Details Date Type Department Care Team (Late st Contact Info) Description 04/26/2017 Ancillary Procedure Radiology Library at [facility] [place] [address] Subha Gifford MD [address] [place] [address] [address] [place], [place] [id number] Social History Tobacco Use Types Packs/Day Years Used Date Smoking Tobacco: Never Sex and Gender Information Value Date Recorded Sex Assigned at Not on file Gender Identity Not on file Sexual Orientation Not on file documented as of this encounter Plan of Treatment Not on file documented as of this encounter Procedures Procedure Name Priority Date/Time Associated Diagnosis Comments FILM LIBRARY-STORAGE ONLY US BREAST Routine 04/26/2017 12:00 AM EST documented in this encounter Results * Film Library Storage Only US Breast (04/26/2017 12:00 AM EST) Narrative RAD - 09/15/2018 3:18 PM EDT This exam is auto-finalizing. It's purpose is for storage only. Subha Gifford MD IMG FILM LIBRARY OR DERABLES [place], [place] documented in this encounter Visit Diagnoses Not on filedocumented in this encounter Care Teams It Network Administrator Relationship Specialty Start Date End Date Subha Gifford MD [address] [place] [address] PCP - General 03/27/14 documented as of this encounter
--- OUTSIDE RECORDS SUMMARY | 2024-04-04 18:06 | XMS_ITS | Encounter Summary ---
[place] [address] Care Team Providers Care Sales Enablement Lead Name Role Phone Subha Gifford MD Primary Care Provider [phone] Encounter Details Date Type Department Care Team (Late st Contact Info) Description 10/02/2018 10:16 AM EDT - 10/02/2018 11:59 PM EDT Hospital En[place] [address] Adjovu, Bia, CAR LUBRICATOR [address] [place] [address] Lump of right breast Discharge Disposition: Home Social History Tobacco Use Types Packs/Day Years Used Date Smoking Tobacco: Never Sex and Gender Information Value Date Recorded Sex Assigned at Not on file Gender Identity Not on file Sexual Orientation Not on file documented as of this encounter Plan of Treatment Not on file documented as of this encounter Procedures Procedure Name Priority Date/Time Associated Diagnosis Comments MAMMO BREAST US LIMITED BILATERAL Routine 10/02/2018 12:13 PM EDT Lump of right breast documented in this encounter Results * US Breast Limited Bilat (10/02/2018 12:13 PM EDT) Anatomical Region Laterality Modality Breast Bilateral Mammography Narrative 10/02/2018 12:49 PM EDT EXAMINATION: US bilateral BREAST LIMITED BILATERAL, MAMMO DIAGNOSTIC CAD AND YADIRA BILATERAL; diagnostic right mammogram; screening left mammogram. [...] contact the number below. ? Bia Adjovu CAR LUBRICATOR IMG MAMMO ORDERABLE S documented in this encounter Visit Diagnoses Diagnosis Lump of right breast Lump or mass in breast documented in this encounter Care Teams Sales Enablement Lead Relationship Specialty Start Date End Date Subha Gifford MD [address] [place] [address] PCP - General 03/27/14 documented as of this encounter
--- OUTSIDE RECORDS SUMMARY | 2024-04-04 18:06 | XMS_ITS | Encounter Summary ---
Author Organization [facility] [place] [address] Care Team Providers Care Sports Activities Foul Judge Name Role Phone Subha Gifford MD Primary Care Provider [phone] Encounter Details Date Type Department Care Team (Late st Contact Info) Description 04/13/2017 Ancillary Procedure Radiology Library at [facility] [place] [address] Subha Gifford MD [address] [place] [address] [address] [place], [place] [id number] Social History Tobacco Use Types Packs/Day Years [...] Comments FILM LIBRARY STORAGE ONLY MAMMO Routine 04/13/2017 12:00 AM EDT documented in this encounter Results * Film Library- Storage Only Mammo (04/13/2017 12:00 AM EDT) Narrative RAD - 09/15/2018 4:22 PM EDT This exam is auto-finalizing. It's purpose is for storage only. Subha Gifford MD IMG FILM LIBRARY OR DERABLES [place], [place] documented in this encounter Visit Diagnoses Not on filedocumented in this encounter Care Teams Sports Activities Foul Judge Relationship Specialty Start Date End Date Subha Gifford MD [address] [place] [address] PCP - General 03/27/14 documented as of this encounter
--- OUTSIDE RECORDS SUMMARY | 2024-04-04 18:06 | XMS_ITS | Encounter Summary ---
[place] [address] Care Team Providers Care Labor Relations Consultant Name Role Phone Subha Gifford MD Primary Care Provider [phone] Encounter Details Date Type Department Care Team (Late st Contact Info) Description 10/02/2018 10:00 AM EDT - 10/02/2018 10:15 AM EDT Hospital [place] [address] Adjovu, Bia, PRESTRESSED CONCRETE LABORER [address] [place], [place] [phone] Lump of breast, right Discharge Disposition: Home Social History Tobacco Use [...] 11:15 AM EDT Lump of breast, right documented in this encounter Results * Mammo Diagnostic CAD and Taj [...] contact the number below. ? Bia Adjovu PRESTRESSED CONCRETE LABORER IMG MAMMO ORDERABLE S documented in this encounter Visit Diagnoses Diagnosis Lump of breast, right Lump or mass in breast documented in this encounter Care Teams Labor Relations Consultant Relationship Specialty Start Date End Date Subha Gifford MD [address] [place] [address] PCP - General 03/27/14 documented as of this encounter
--- OUTSIDE RECORDS SUMMARY | 2024-04-04 18:07 | XMS_ITS | Encounter Summary ---
Author Organization [facility] Address [address] [place] [address] Care Team Providers Care Cake Wrapper Name Role Phone Tiesha Hargrove MD Primary Care Provider Encounter Details Date Type Department Care Team (Late st Contact Info) Description 07/14/2016 Results Only [facility] [phone] Isha Gifford MD [facility] [address] [place] [phone] Social History Tobacco Use Types Packs/Day Years Used Date Smoking Tobacco: Never Assessed Sex and Gender Information Value Date Recorded Sex Assigned at Not on file Gender Identity Not on file Sexual Orientation Not on file documented as of this encounter Plan of Treatment Not on file documented as of this encounter Procedures Procedure Name Priority Date/Time Associated Diagnosis Comments PAP TEST- RESULT ONLY Routine 07/14/2016 0:00 EST documented in this encounter Results * PAP TEST- RESULT ONLY (07/14/2016 0:00 EST) Pathology Report: CYTOPATHOLOGY REPORT Reports generated via electronic interface contain original data; however they are lacking the format of the original report. Caution should be taken when reading/interpreti ng unformatted reports. Name: ? CHILO DANIELS ? Accession #: ? [id number] ? : ? 1965 (Age: 51) ??F ?Collect Date: ? 07/14/2016 ? Location: ? [facility] ? Receive Date: ? 07/16/2016 ? Provider: ISHA GIFFORD MD Copy to: ? Final Report SPECIMEN ADEQUACY ? Satisfactory for Evaluation - transformation zone component present GENERAL CATEGORIZATION ? Negative for Intraepithelial Lesion or Malignancy ?? Last Menstrual Period: 06/18/2016 Hormonal/Contracep tive status: None Treatment History: Cryotherapy: Specimen/Source: ??Pap Test, Cervix, ThinPrep Imaging System with manual evaluation Document reviewed and electronically signed by: ? Derrick Miller, CT(ASCP) ? Report ??Date: 07/20/2016 15:20 HPV with Pap Test ? Date Ordered: ? 07/20/2016 ? Status: ?? Signed Out ?Date Complete: ? 07/21/2016 ? By: ??System Interface ? Date Reported: ? 07/21/2016 ? Interpretation RESULT: Negative for HPV. No E6 or E7 mRNA is detected from HPV types 16,18,31,33,35, 39,45,51,52,56,58, 59,66, and 68 by sap payroll consultant mediated amplification. Comments Document reviewed and electronically signed by: ? System Interface ? Report date: 07/21/2016 By the signature above, the attending physician certifies that he/she has personally conducted a gross and/or microscopic examination of the described specimens and rendered or confirmed the above diagnosis. End of Report [facility] 07/14/2016 07/16/2016 Isha Gifford MD PATHOLOGY ORDERABLE S [facility] [address] [place] [address] documented in this encounter Visit Diagnoses Not on filedocumented in this encounter Care Teams Cake Wrapper Relationship Specialty Start Date End Date Tiesha Hargrove MD [address] [place], [place] [phone] PCP - General 04/27/15 documented as of this encounter
--- OUTSIDE RECORDS SUMMARY | 2024-04-04 18:07 | XMS_ITS | Encounter Summary ---
Author Organization [facility] Address [address] [place] [address] Care Team Providers Care Oil Painter Name Role Phone Unavailable Primary Care Provider Unavailabl e Encounter Details Date Type Department Care Team (Late st Contact Info) Description 01/15/2013 Results Only [facility] Laboratory Services - [facility] ([facility]) [address] [place], [place] [phone] Kris Dunn MD [address] [place], [place] [phone] Social History Tobacco Use Types Packs/Day Years [...] Diagnosis Comments PAP TEST- RESULT ONLY Routine 01/15/2013 0:00 EDT documented in this encounter Results * PAP TEST- RESULT ONLY (01/15/2013 0:00 EDT) Pathology Report: CYTOPATHOLOGY REPORT Reports generated via electronic interface contain original data; however they are lacking the format of the original report. Caution should be taken when reading/interpreti ng unformatted reports. Name: ? CHILO DANIELS ? Accession #: ? [id number] ? : ? 1965 (Age: 47) ??F ?Collect Date: ? 01/15/2013 ? Location: ? [facility] ? Receive Date: ? 01/16/2013 ? Provider: KRIS DUNN MD Copy to: ? Final Report SPECIMEN ADEQUACY ? Satisfactory for Evaluation - transformation zone component present GENERAL CATEGORIZATION ? Negative for Intraepithelial Lesion or Malignancy ?? Last Menstrual Period: 12/20/2012 Specimen/Source: ??Pap Test, Cervix/Endocervix, ThinPrep Imaging System with manual evaluation Document reviewed and electronically signed by: ? SILVANA Everett(ASCP) ? Report ??Date: 01/24/2013 13:52 HPV with Pap Test ? Date Ordered: ? 01/24/2013 ? Status: ?? Signed Out ?Date Complete: ? 01/26/2013 ? By: ??System Interface ? Date Reported: ? 01/26/2013 ? Interpretation RESULT: Negative for HPV. No E6 or E7 mRNA is detected from HPV types 16,18,31,33,35, 39,45,51,52,56,58, 59,66, and 68 by consignee mediated amplification. Comments Document reviewed and electronically signed by: ? System Interface ? Report date: 01/26/2013 By the signature above, the attending physician certifies that he/she has personally conducted a gross and/or microscopic examination of the described specimens and rendered or confirmed the above diagnosis. End of Report [facility] 01/15/2013 01/16/2013 Kris Dunn MD PATHOLOGY ORDERABLES [facility] [address] [place] [address] documented in this encounter Visit Diagnoses Not on filedocumented in this encounter
--- OUTSIDE RECORDS SUMMARY | 2024-04-04 18:07 | XMS_ITS | Encounter Summary ---
Author Organization [facility] Address [address] [place] [address] Care Team Providers Care Wireless Field Technician Name Role Phone Unavailable Primary Care Provider Unavailabl e Encounter Details Date Type Department Care Team (Late st Contact Info) Description 08/21/2007 Results Only [facility] conversion [address] [place] [address] Glynn Johnson PA Social History Tobacco Use Types Packs/Day Years Used Date Smoking Tobacco: Never Assessed Sex and Gender Information Value Date Recorded Sex Assigned at Not on file Gender Identity Not on file Sexual Orientation Not on file documented as of this encounter Plan of Treatment Not on file documented as of this encounter Procedures Procedure Name Priority Date/Time Associated Diagnosis Comments CYTOPATHOLOGY Routine 08/21/2007 0:00 EST documented in this encounter Results * CYTOPATHOLOGY (08/21/2007 0:00 EST) Pathology Report: CYTOPATHOLOGY REPORT Reports generated via electronic interface contain original data; however they are lacking the format of the original report. Caution should be taken when reading/interpreti ng unformatted reports. Name: ? CHILO DANIELS ? Accession #: ? [id number] : ? 1965 (Age: 42) ??F ?Collect Date: ? 08/21/2007 Location: ? [facility] ? Receive Date: ? 08/22/2007 Provider: ?GLYNN SHARMA Copy to: ? Specimen/Source: ?ThinPrep Pap Test, Endocervix, processed on [employer] ThinPrep Imaging System, with manual evaluation Last Menstrual Period: ? 07-28-07 Treatment History: ? Cryotherapy: h/o Other: ? HPVA - HPV testing requested if ASC-US on the current ThinPrep Pap test. ? SPECIMEN ADEQUACY ? Satisfactory for Evaluation - transformation zone component present GENERAL CATEGORIZATION ? Negative for Intraepithelial Lesion or Malignancy INTERPRETATION ? Fungal organisms present morphologically consistent with Adry species. ? Document reviewed and electronically signed by: ? SILVANA Freitas(ASCP) ? Report Date: ??08/24/2007 15:43 End of Report [facility] 08/21/2007 08/22/2007 Glynn SHARMA PATHOLOGY ORDERABLES [facility] [address] [place] [address] documented in this encounter Visit Diagnoses Not on filedocumented in this encounter
--- OUTSIDE RECORDS SUMMARY | 2024-04-04 18:07 | XMS_ITS | Encounter Summary ---
Author Organization [facility] Address [address] [place] [address] Care Team Providers Care Traffic Signal Repairer Name Role Phone Unavailable Primary Care Provider Unavailabl e Encounter Details Date Type Department Care Team (Late st Contact Info) Description 08/25/2009 Results Only [facility] Laboratory Services - [facility] ([facility]) [address] [place], [place] [phone] Kris Dunn MD [address] [place], [place] [phone] Social History Tobacco Use Types Packs/Day Years Used Date Smoking Tobacco: Never Assessed Sex and Gender Information Value Date Recorded Sex Assigned at Not on file Gender Identity Not on file Sexual Orientation Not on file documented as of this encounter Plan of Treatment Not on file documented as of this encounter Procedures Procedure Name Priority Date/Time Associated Diagnosis Comments HPV DETECTION, HIGH RISK TYPES Routine 08/25/2009 14:08 EST CYTOPATHOLOGY Routine 08/25/2009 0:00 EST documented in this encounter Results * HUMAN PAPILLOMA VIRUS DNA TEST (08/25/2009 14:08 EST) Specimen Description Cervix, ThinPrep vial [facility] Result Negative for HPV types 16, 18, 31, 33, 35, 39, 45, 51, 52, 56, 58, 59, and 68. [facility] Report Status Final 09/01/2009 [facility] 08/25/2009 14:0 8 EST 08/27/2009 14:08 EST Kris Dunn MD MICROBIOLOGY - GENER AL ORDERABLES [facility] [address] [place] [address] * CYTOPATHOLOGY (08/25/2009 0:00 EST) Pathology Report: CYTOPATHOLOGY REPORT ? Reports generated via electronic interface contain original data; ? however they are lacking the format of the original report. ? Caution should be taken when reading/interpreti ng unformatted reports. ? Name: ? CHILO DANIELS ? Accession #: ? [id number] ? : ? 1965 (Age: 44) ??F ?Collect Date: ? 08/25/2009 ? Location: ? [facility] ? Receive Date: ? 08/26/2009 ? Provider: ?KRIS DUNN MD ? Copy to: ? Specimen/Source: ?Pap Test, Cervix/Endocervix, ThinPrep Imaging System ? with manual evaluation ? Last Menstrual Period: ? 02/17/10 ? Other: ? HPVDX - HPV testing requested regardless of diagnosis on current ThinPrep Pap ?? test. ? SPECIMEN ADEQUACY ? Satisfactory for Evaluation ? - transformation zone component present ? GENERAL CATEGORIZATION ? Negative for Intraepithelial Lesion or Malignancy ? Document reviewed and electronically signed by: ? Sushant Stumler, CT(ASCP) ? Report Date: ??08/27/2009 11:52 ? End of Report ? [facility] 08/25/2009 08/26/2009 Kris Dunn MD PATHOLOGY ORDERABLES [facility] [address] [place] [address] documented in this encounter Visit Diagnoses Not on filedocumented in this encounter
--- OUTSIDE RECORDS SUMMARY | 2024-04-04 18:07 | XMS_ITS | Encounter Summary ---
Author Organization [facility] Address [address] [place] [address] Care Team Providers Care Lunch Truck Driver Name Role Phone Unavailable Primary Care Provider Unavailabl e Encounter Details Date Type Department Care Team (Late st Contact Info) Description 07/05/2000 Results Only [facility] [address] [place] [address] Deniz Patel, DO [address] [facility] [address] [place], [place] [phone] Social History Tobacco Use Types Packs/Day Years Used Date Smoking Tobacco: Never Assessed Sex and Gender Information Value Date Recorded Sex Assigned at Not on file Gender Identity Not on file Sexual Orientation Not on file documented as of this encounter Plan of Treatment Not on file documented as of this encounter Procedures Procedure Name Priority Date/Time Associated Diagnosis Comments SURGICAL PATHOLOGY Routine 07/05/2000 0:00 EST documented in this encounter Results * SURGICAL PATHOLOGY (07/05/2000 0:00 EST) Pathology Report: SURGICAL PATHOLOGY REPORT Reports generated via electronic interface contain original data; however they are lacking the format of the original report. Caution should be taken when reading/interpreti ng unformatted reports. Name: ? CHILO DANIELS ? Accession #: ? [id number] ? : ? 1965 (Age: 35) ??F ? Collect Date: ? 07/05/2000 ? Location: ? [facility] ? Receive Date: ? 07/05/2000 ? Provider: DENIZ PATEL DO Copy to: KRIS PETERSEN MD ? Final Pathologic Diagnosis: A. ?Colon, 25.0 cm, biopsy: 1. ?No specific pathological features. B. ?Rectum, biopsy: 1. ?No specific pathological features. Document reviewed and electronically signed by: Phillip Bueno [facility] Report ??Date: 07/07/2000 15:52 By the signature above, the attending physician certifies that he/she has personally conducted a gross and/or microscopic examination of the described specimens and rendered or confirmed the above diagnosis. Specimen(s) Received: A. ?Biopsy @ 25 cm (#1) B. ?Rectal biopsies (#2) Clinical History: ? Bloody diarrhea Gross Description: ? Received in Hollande' s fixative labelled Oganesyan and ??#1 are three parker-yellow irregularly shaped fragments of tissue that range in size from 0.4 x 0.2 x 0.2 cm to 0.9 x 0.2 x 0.2 cm. They are submitted entirely as (A). Received in Hollande' s fixative labelled Oganesyan and #2 are three parker-yellow irregularly shaped fragments of tissue that range in size from 0.4 x 0.2 x 0.2 cm to 0.9 x 0.2 x 0.2 cm. They are submitted entirely as (B). ??(Dr. Gaspar)/[facility] End of Report [facility] 07/05/2000 07/05/2000 15: 26 EST Deniz Patel DO PATHOLOGY ORDER SAMM [facility] [address] [place] [address] documented in this encounter Visit Diagnoses Not on filedocumented in this encounter
== END 2024-04-04 18:05 | disposition home or self-care (01) ==
LOC: LBN 18:04
PROVIDERS: PCP Nurse Practitioner Family; Visit Provider Nurse Practitioner Family
DX: L98.9 Disorder of the skin and subcutaneous tissue, unspecified (principal); L72.0 Epidermal cyst
CPT/HCPCS: 87070; 87205

== ENCOUNTER 2024-05-15 08:52 | Outpatient (REF) | payer BC, SELFPAY | END 2024-05-15 08:53 | disposition home or self-care (01) | LOC: LBN 08:52 | PROVIDERS: PCP Nurse Practitioner Family; Visit Provider Surgery | DX: L02.91 Cutaneous abscess, unspecified (principal) | CPT/HCPCS: 87070; 87205 ==

== ENCOUNTER 2024-10-18 13:37 | Outpatient (REF) | payer BC, SELFPAY ==
--- NOTE | 2024-10-18 13:00 | ENDOMET_PTH ---
PATIENT: Demi Randle LOC: [facility] U#:[id number] AGE/SX: 59/F ROOM: RE10/18/[address]: Maria L Berger DO : 1965 BED: DIS: 10/18/2024 SPEC #: [id number] RECD: 10/18/24 17:38 STATUS: CAROLE REQ #: [id number] KRISHNA: 10/18/24 13:[address]: Maria L Berger DEPT: Surgical Specimen RECD BY: Bre Capps ENTERED: 10/18/24 17:38 SP TYPE: Endomet OTHR DR: Gabino Canchola DNP Tissues: 1 - ENDOMETRIUM BX/LILY Procedures: GROSS AND MICRO LEVEL 4 Comments: [id number]
== END 2024-10-18 13:38 | disposition home or self-care (01) ==
LOC: LBN 13:37
PROVIDERS: PCP Nurse Practitioner Family; Visit Provider Obstetrics & Gynecology
DX: N84.0 Polyp of corpus uteri (principal)
CPT/HCPCS: 88305

== ENCOUNTER 2025-05-14 15:59 | Outpatient (REF) | payer BC, SELFPAY ==
--- NOTE | 2025-05-14 15:30 | PAPFT_PTH ---
PATIENT: Demi Randle LOC: [facility] U#:[id number] AGE/SX: 60/F ROOM: RE05/14/[address]: Maria L Berger DO : 1965 BED: DIS: 05/14/2025 SPEC #: [id number] RECD: 05/14/25 18:12 STATUS: CAROLE REQ #: [id number] KRISHNA: 05/14/25 15:[address]: Maria L Berger DEPT: [facility] Cytology RECD BY: Bre Capps ENTERED: 05/14/25 18:12 SP TYPE: PAPFT OTHR DR: Gabino Canchola DNP Tissues: 1 - CX/ENDOCX FOR PAP SMEARS Procedures: PAP THIN PREP/[facility] Screening HPV DNA PROBE Comments: (HPV 16 & 18/45)
== END 2025-05-14 16:00 | disposition home or self-care (01) ==
LOC: LBN 15:59
PROVIDERS: PCP Nurse Practitioner Family; Visit Provider Obstetrics & Gynecology
DX: Z12.4 Encounter for screening for malignant neoplasm of cervix (principal)
CPT/HCPCS: 88142; 87624

== ENCOUNTER 2025-06-10 12:05 | Outpatient (CLI) | payer BC, SELFPAY ==
--- NOTE | 2025-06-10 09:30 | DI.RAD_ITS ---
Exam(s) XR WRIST RT COMPLETE EXAM: XR WRIST RT COMPLETE CLINICAL HISTORY: R wrist/thumb pain. TECHNIQUE: 2D digital imaging was performed of the right wrist. Three views were obtained. PA, lateral and oblique views were obtained. COMPARISON: No exams were available for comparison FINDINGS: BONES: No acute fracture is present. No bony destructive lesion is seen. JOINTS: The carpal bones are normally aligned. There are [id number] degenerative changes seen at the 1st CMC joint. SOFT TISSUE: Normal. IMPRESSION: [id number] degenerative changes seen at the 1st CMC joint. DATA REPOSITORY: RADIATION DOSE DELIVERED:
== END 2025-06-10 12:06 | disposition home or self-care (01) ==
LOC: DIORS 12:05
PROVIDERS: PCP Nurse Practitioner Family; Visit Provider Physician Assistant
DX: M25.531 Pain in right wrist (principal); M18.51 Other unilateral secondary osteoarthritis of first carpometacarpal joint, right hand
CPT/HCPCS: 73110

== ENCOUNTER → 2025-06-18 16:16 | Outpatient (CLI) | payer BC, SELFPAY ==
--- NOTE | 2025-06-18 08:00 | DI.MAMMO_ITS ---
Exam(s) MAMMO SCREENING EXAM: MAMMO SCREENING CLINICAL HISTORY: screening Z12.39 TECHNIQUE: Mammograms were interpreted according to the usual protocol including computer analysis with CAD system, tomosynthesis and C-view imaging. COMPARISON: 2015 through 2022 FINDINGS: The breasts are composed of scattered fibroglandular densities, Breast Density category B. No suspicious masses or suspicious microcalcifications are seen. No skin thickening or abnormal axillary lymph nodes are seen. There has been no significant change from prior exams. IMPRESSION: BI-RADS Category 1, Negative mammogram Yearly screening mammography is recommended. Breast Density - Category B - There are scattered areas of fibroglandular density. Breast density Category C or D implies that the patient has dense breast tissue. Dense breast tissue can make it harder to find cancer on a mammogram. Dense breast tissue is also associated with an increased risk of breast cancer. This information about the result of the mammogram report was provided to the patient to raise their awareness. Use this report when you speak with the patient about their risks for breast cancer, which includes their family history. At that time, you may recommend additional screening tests (Ultrasound or MRI) as these tests may add significant information. A negative radiographic report should not delay biopsy if a dominant or clinically suspicious mass is present. Up to ten percent of cancers are not identified on mammography. A negative report may reinforce clinical impression. Adenosis and dense breasts may obscure an underlying neoplasm. False positive reports average 6 to 10%. Patient will receive a letter notifying them of these results.
== END ==
LOC: DI 16:16
PROVIDERS: PCP Nurse Practitioner Family; Visit Provider Obstetrics & Gynecology
DX: Z12.31 Encounter for screening mammogram for malignant neoplasm of breast (principal); R92.323 Mammographic fibroglandular density, bilateral breasts
CPT/HCPCS: 77063; 77067